=== PATIENT | male | born 1970 | race Caucasian/White ===

== ENCOUNTER 2017-09-11 07:39 | Day surgery (SDC) | payer MEDICAID ==
[2017-09-11 08:04] VITALS: BMI 42.0
[2017-09-11] MEDS ORDERED: Lactated Ringer's 1,000 ML IV ONE (09:35)
--- NOTE | 2017-09-11 09:36 | CP.SDSHP ---
Same Day Surgery H & P - History Proposed Procedure: colonoscopy Pre-Op Diagnosis: colon cancer screening - Allergies Allergies: Allergies No Known Allergies Allergy (Unverified 09/11/17 08:03) - Physical Exam Vital Signs: Vital Signs 09/11/17 09/11/17 08:08 08:10 Temperature 98.0 F Pulse Rate 79 79 Respiratory 20 Rate Blood Pressure 133/75 Mental Status: Alert & Oriented x3 Neuro: WNL Heart: WNL Lungs: WNL GI: WNL - {Optional Preform as Required} Abdomen: WNL - Impression Impression: colon cancer screening Pt. Evaluated Today:Candidate for Anesthesia & Procedure: Yes Short Stay Discharge - Short Stay Discharge Admitting Diagnosis/Reason for Visit: COLON CANCER SCREENING Disposition: HOME/ ROUTINE
[2017-09-11] MEDS ORDERED: Midazolam 2 MG/2 ML VIAL ONE (09:41)
[2017-09-11] MEDS ORDERED: Propofol 10 mg/ml Inj (20 ML) ONE ×2 (09:41→09:52)
[2017-09-11] MEDS ORDERED: ePHEDrine 50 mg/ml Inj ONE (09:52)
[2017-09-11 10:37] VITALS: RESP 15; TEMP 97.1
[2017-09-11 11:51] VITALS: O2SAT 100
[2017-09-11 11:55] VITALS: BP 113/67; PULSE 81
== END 2017-09-11 11:30 | disposition home or self-care (01) ==
LOC: C.ENDO 07:39
PROVIDERS: ATTEND Internal Medicine Gastroenterology
DX: Z12.11 Encounter for screening for malignant neoplasm of colon (principal); D12.7 Benign neoplasm of rectosigmoid junction; D21.9 Benign neoplasm of connective and other soft tissue, unspecified
CPT/HCPCS: 45385; 82948; 88305; J2001; J2250; J2704; J7120